=== PATIENT | female | born 1985 | race Caucasian/White ===

== ENCOUNTER 2025-02-23 12:57 | Emergency (ER) | payer OTHER ==
[~2025-02-23] VITALS: Ht 175.3 cm; Wt 65.8 kg
[2025-02-23 13:50] VITALS: PULSE 67; RESP 14; TEMP 98.4; O2SAT 100
== END 2025-02-23 14:20 | disposition home or self-care (01) ==
LOC: ER 14:10
DX: K62.5 Hemorrhage of anus and rectum (principal); K60.2 Anal fissure, unspecified
CPT/HCPCS: 99282